=== PATIENT | male | born 1980 | race Two or more races ===

== ENCOUNTER 2025-06-15 22:46 | Emergency (ER) | payer SELFPAY ==
[2025-06-15 22:48] VITALS: BP 139/88; PULSE 102; RESP 18; TEMP 37.3; O2SAT 97
--- NOTE | 2025-06-15 23:07 | XR_ITS ---
Examination: CT brain head without contrast. 2-D sagittal coronal reconstructions Date and time of exam:June 15, 2025 1143 hrs. Indications: Headache dizziness today CTDI: vol (mGy):50.8 DLP: (mGycm):943 Technique: Multiple CT axial sections of the brain have been obtained, 5 mm slice thickness. Contrast has not been administered. 2-D sagittal, coronal reconstructions have been obtained Low dose protocols were performed. One or more of the following dose reduction techniques were used; automated exposure control, adjustment of the mA and/or KV according to patient size, use of iterative reconstruction technique. Findings: No significant ventricular enlargement. Intra-axial or extra-axial hemorrhage density is not seen. No mass effect or midline shift Basal cisterns are not remarkable. Fourth ventricle is midline. Cranial vault intact. Impression: Negative for acute hemorrhage, mass effect or midline shift Advise clinical correlation follow-up accordingly
[2025-06-15 23:48] LABS: Basophils # (Auto) 0.0 Thou/mm3 (0.0-0.2); Basophils % (Auto) 0 % (0-2.5); Eosinophils # (Auto) 0.0 Thou/mm3 (0.0-0.5); Eosinophils % (Auto) 0 % (0-10); Hematocrit 47.2 % (41.0-53.0); Hemoglobin 16.3 g/dL (13.5-16.0); Immature Granulocytes Auto 0.03 Thou/mm3 (0.00-0.00); Lymphocytes # (Auto) 1.3 Thou/mm3 (1.0-4.8); Lymphocytes % (Auto) 14 % (10-50); Mean Corpuscular HGB Conc 34.5 g/dl (31.0-37.0); Mean Corpuscular Hemoglobin 27.4 pg (25.0-35.0); Mean Corpuscular Volume 80 fL (80-100); Monocytes # (Auto) 0.5 Thou/mm3 (0.0-0.8); Monocytes % (Auto) 5 % (0-12); Neutrophils # (Auto) 7.4 Thou/mm3 (1.8-7.7); Neutrophils % (Auto) 80 % (37-80); Nucleated Red Blood Cell # 0.00 Thou/mm3 (0.00-0.00); Nucleated Red Blood Cell % 0 /100 WBC (0); Platelet Count 165 Thou/mm3 (140-440); RDW Standard Deviation 35.7 fL (35.1-43.9); Red Blood Count 5.94 Miln/mm3 (4.50-5.90); White Blood Count 9.3 Thou/mm3 (3.8-10.6)
[2025-06-16] LABS: Alanine Aminotransferase 46 U/L (10-49); Albumin, Serum 4.2 gm/dL (3.5-5.0); Albumin/Globulin Ratio 1.3 (1.2-2.2); Alkaline Phosphatase 111 U/L (46-116); Anion Gap 12 (7-16); Aspartate Amino Transferase 24 U/L (0-34); BUN/Creatinine Ratio 11 Ratio (12-20); Bilirubin,Total 1.6 mg/dL (0.3-1.2); Blood Urea Nitrogen 12 mg/dL (9-23); Calcium 9.8 mg/dL (8.3-10.6); Calcium (Corrected) 9.8 mg/dL (8.5-10.1); Carbon Dioxide 25.2 mMol/L (20.0-31.0); Chloride 100 mMol/L (98-107); Creatinine (Component) 1.1 mg/dL (0.6-1.3); Globulin 3.3 gm/dL (2.3-3.5); Glucose 332 mg/dL (74-106); Osmolality,Calculated 286 (275-295); Potassium 4.2 mMol/L (3.4-5.1); Sodium 137 mMol/L (136-145); Total Protein 7.5 gm/dL (5.7-8.2); eGFR > 60 See Note
[2025-06-16 00:58] LABS: Base Excess, Venous 2 (-3-3); O2 Saturation, Venous 33 % (96-97); PCO2, Venous 41 mmHg (36-56); PO2, Venous 19 mmHg (15-58); pH, Venous 7.42 (7.33-7.66)
[2025-06-16 03:11] VITALS: BP 118/81; PULSE 108; RESP 18; O2SAT 97
[2025-06-16] MEDS: SODIUM CHLORIDE 0.9% 1000 ML 1,000 ML 999 ML IV (03:31)
[2025-06-16] MEDS: INSULIN HUM REGULAR 1 UNIT/0.01 ML (PER UNIT) 5 UNIT IV (03:40)
[2025-06-16] MEDS: HYDROcodone/APAP 5/325 TABLET 1 TAB PO (03:47)
[2025-06-16] MEDS: ONDANSETRON INJ 2 MG/ML INJ 2 ML 4 MG IVP (03:47)
[2025-06-16] MEDS: KETOROLAC INJ 30 MG/ML VIAL IVP (03:47)
[2025-06-16 03:53] VITALS: BP 150/96; PULSE 111; RESP 21; TEMP 38.3
--- NOTE | 2025-06-16 04:49 | EDNOTE_ITS ---
ED Headache RME/HPI General Chief Complaint: Headache Stated Complaint: HEADACHE NV DIZZINESS Time Seen by Provider: 06/15/25 23:06 Arrival date/time: 06/15/25 22:46 This is a case of 45-year-old male with history of diabetes came in in the emergency room due to headache dizziness nausea vomiting today due to pe rsistence of the symptoms this patient decided to sought consult here in the emergency room denies blurring of vision denies any injury or trauma on the head denies any numbness weakness or tingling sensation Limitations: no limitations Related Data Previous Rx's ?Medication ?Instructions ?Recorded butalbital 50 mg-acetaminophen 325 1 tab PO Q6H PRN he adache #12 tabs 06/16/25 mg tablet ondansetron 4 mg disintegrating 4 mg PO Q8H PRN nausea and 06/16/25 tablet vomiting #14 tabs Allergies Allergy/AdvReac Type Severity Reaction Status Date / Time NKA* Allergy Uncoded 06/15/25 22:55 Review of Systems Review of Systems Systems Reviewed: All systems reviewed, normal except as documented Constitutional Constitutional: Reports system reviewed and no additional complaints, except as documented and Reports as per HPI Eyes Eyes: Reports system reviewed and no additional complaints, except as documented and Denies blurry vision Cardiovascular Cardiovascular: Reports system reviewed and no additional complaints, except as documented Respiratory Respiratory: Reports system reviewed and no additional complaints, except as documented and Reports as per HPI Gastrointestinal Gastrointestinal: Reports system reviewed and no additional complaints, except as documented and Reports as per HPI Genitourinary Genitourinary: Reports system reviewed and no additional complaints, except as documented and Reports as per HPI Neurologic Neurologic: Reports system reviewed and no additional complaints, except as documented and Reports as per HPI Past Medical History Past Medical History CARDIAC: Negative Congestive Heart Failure RESPIRATORY: Negative Chronic Obstructive Pulmonary Disease (COPD) GENITOURINARY: Negative Renal Disease ENDOCRINE: Negative Diabetes Mellitus Type 1 or Diabetes Mellitus Type 2 Social History SMOKING STATUS: Never smoker ED Exam General Limitations: Present no limitations General appearance: Present alert, in no apparent distress and other (Patient is awake alert oriented not in distress nontoxic looking well-hydrated well-nourished) Head Head exam: Present atraumatic, normocephalic and normal inspection Eye Eye exam: Present normal appearance, PERRL, EOMI and other (PERRL EOM intact normal conjunctiva no palpable edema no hyphema) ENT ENT exam: Present normal exam, normal oropharynx, mucous membranes moist and other (Normal HEENT exam) Neck Neck exam: Present normal inspection, full ROM, trachea midline and other (Negative for meningeal sign); Absent tenderness, meningismus, lymphadenopathy or thyromegaly Chest Chest inspection: Present normal inspection and symmetric chest wall rise; Absent tenderness, rash or abscess Respiratory Respiratory exam: Present normal lung sounds bilaterally; Absent respiratory distress, wheezes, stridor, accessory muscle use or prolonged expiratory phase Cardiovascular Cardiovascular exam: Present regular rate, normal rhythm and normal heart sounds; Absent bradycardia, tachycardia, irregular rhythm, systolic murmur or diastolic murmur Abdominal Exam Abdominal exam: Present soft and normal bowel sounds Extremities Exam Extremities exam: Present normal inspection and full ROM Back Exam Back exam: Present normal inspection and full ROM Neurological Exam Neurological exam: Present alert, oriented X3, CN II-XII intact, normal gait, reflexes normal and other (Awake alert oriented x 4 no focal deficit GCS 15/15 steady gait the gait no slurring of speech no facial droop CN II through XII is normal motor or sensory reflex were normal negative Babinski); Absent motor sensory deficit Psychiatric Psychiatric exam: Present normal affect and normal mood Skin Skin exam: Present warm, dry, intact, normal color and other (Excellent skin turgor) Course Quality Measures none Orders Category Date Time Status Insert IV NOW Care 06/16/25 03:[address] head/brain wo con Stat Exams 06/15/25 23:07 Completed CBC Stat Lab 06/15/25 23:20 Completed CMP [Comprehensive Metabolic Panel] Stat Lab 06/15/25 23:20 Completed Urinalysis Stat Lab 06/16/25 00:45 Ordered Venous Blood Gas Stat Lab 06/16/25 00:50 Completed HYDROcodone*/APAP 5/325 [[place] 5/325] Med 06/16/25 03:38 Discontinued 1 tab PO X1 ONE Ibuprofen Tab [Motrin Tab] Med 06/16/25 05:35 Once 800 mg PO X1 ONE Insulin Regular Med 06/16/25 00:44 Discontinued 5 unit IV X1 ONE Ketorolac Inj [Toradol Inj] Med 06/16/25 03:38 Discontinued 30 mg IVP X1 ONE Ondansetron Inj [Zofran Inj] Med 06/16/25 03:38 Discontinued 4 mg IVP X1 ONE Sodium Chloride 0.9% 1000 ml [Ns] 1,000 ml Med 06/16/25 00:44 Discontinued IV 999 mls/hr Vital Signs Vital signs: Vital Signs Temperature 99.2 F 06/15/25 22:48 Pulse Rate 102 H 06/15/25 22:48 Respiratory Rate 18 06/15/25 22:48 Blood Pressure 139/88 H 06/15/25 22:48 Pulse Oximetry (%) 97 06/15/25 22:48 Oxygen Delivery Method Room Air 06/15/25 22:48 Oxygen saturation is 97% in room air patient is afebrile not tachycardic not tachypneic BP stable Headache MDM Narrative MDM Narrative:: This is a case of 45-year-old male with history of diabetes came in in the emergency room due to headache dizziness nausea vomiting today due to persistence of the symptoms this patient decided to sought consult here in the emergency room denies blurring of vision denies any injury or trauma on the head denies any numbness weakness or tingling sensation physical examination patient is awake alert oriented not in distress nontoxic looking well-hydrated well- nourished excellent skin turgor no contusion no hematoma on the head PERRL EOM intact normal conjunctiva no palpable edema no hyphema HEENT exam is normal and unremarkable lungs sound is clear no crackles no rales no retraction no stridor heart normal rate regular rhythm no murmur neurological exam is normal awake alert oriented x 4 no focal deficit GCS 15/15 CN II through XII is normal memory intact no slurring of speech no facial droop motor or sensory reflex were normal in all extremities negative Babinski steady gait blood test showed no leukocytosis no anemia kidney and liver function is normal no electrolyte imbalance patient glucose noted to be 332 thus hypoglycemia protocol was followed patient was given a bolus of normal saline and was given 5 units of regular insulin patient and iron is -12 thus patient is not having DKA patient venous blood gas is also normal patient EKG is also normal sinus rhythm patient CT scan of the head is also normal and unremarkable after giving Toradol [place] and Zofran patient headache was resolved patient blood sugar was rechecked after a bolus of normal saline and regular insulin and was noted to be 283 at this point patient condition markedly improved and can be discharged home with stable condition I have a long discussion with this patient patient needs to continue and take the medication of diabetes daily he needs to see also washateria attendant to review the medication for diabetes and to monitor his blood sugar he also needs to see a neurologist for his headache he was also advised to return in the emergency room if symptoms become worse recur or persist patient has no signs and symptoms of sepsis dehydration nor meningitis negative for meningeal sign Patient was discharged with comfortable condition walking with stable gait. Shabbir goff verbalized no further complains explained diagnosis and answered patient question. Patient is comfortable with the proposed management plan including the need to follow up with his/her primary care physician and any specialist if applicable Discussed patient for any urgent condition or worsening sx, He/She needed to go to emergency room immediately or call 911. Patient acknowledge the responsibility to follow up as instructed and to monitor her/his symptoms. For any persistence of the symptoms for more than 3-5 days return precaution advised. Discussed the result of the test and was given printed discharge instruction Patient data External records reviewed:: [facility] previous records Clinical information provided by:: patient and spouse Social determinants that could affect healthcare access:: none Patient has the following chronic illnesses:: None How is presenting disease/condition affected by chronic disease/condition?: no chronic disease Evaluation data The following diagnostics were reviewed and interpreted by me:: lab results, radiology exam(s) and EKG tracing(s) Lab and/or radiology exams considered but not ordered:: Reviewed Interpretation Summary: Reviewed Medications / Prescriptions Medications or Prescriptions considered but not ordered:: Given Medication administrations:: Medication Administration History Discontinued Medications Hydrocodone Bitart/Acetaminophen (Hydrocodone/Apap 5/325 Tablet) 1 tab PO X1 ONE Stop: 06/16/25 03:39 Last Admin: 06/16/25 03:47 Dose: 1 tab Documented By: MARYJANE Sodium Chloride (Ns) 1,000 mls @ 999 mls/hr IV .Q1H1M ONE Stop: 06/16/25 01:44 Last Infusion: 06/16/25 04:35 Dose: Infused Documented By: Admin: 06/16/25 03:31 Dose: 999 mls/hr Documented By: MARYJANE Insulin Human Regular (Insulin Hum Regular 1 Unit/0.01 Ml (Per Unit)) 5 unit IV X1 ONE Stop: 06/16/25 00:45 Last Admin: 06/16/25 03:40 Dose: 5 unit Documented By: MARYJANE Co-signed By: Ketorolac Tromethamine (Ketorolac Inj 30 Mg/Ml Vial) 30 mg IVP X1 ONE Stop: 06/16/25 03:39 Last Admin: 06/16/25 03:47 Dose: 30 mg Documented By: MARYJANE Ondansetron HCl (Ondansetron Inj 2 Mg/Ml Inj 2 Ml) 4 mg IVP X1 ONE; Protocol Stop: 06/16/25 03:39 Last Admin: 06/16/25 03:47 Dose: 4 mg Documented By: MARYJANE Given Consultations Consultation(s) initiated? (list below): No Diagnosis Differential diagnosis headache: migraine, tension headache, headache and sinusitis Most likely diagnosis given after review of the tests above:: Headache Admission Indicated Admission indicated?: not indicated Explain why admission is indicated or not indicated:: Not indicated Admission Request Was there a request for admission?: No Disposition Plan Disposition Plan: Discharge Discharge Attestation Discharge Attestation: The patient and all family members were given an opportunity to ask questions and understood the discharge instructions. Discharge instructions specifically effects, indications for sooner follow up or return to the emergency department, and the expected course of current diagnosis. Patient condition: Stable Discharge Plan Plan Patient Disposition: HOME (Self Care) Patient condition on transfer: Stable Prescriptions/Referrals Prescriptions/Med Rec: New butalbital-acetaminophen 50-325 mg tablet 1 tab PO Q6H PRN (Reason: headache) Qty: 12 0RF ondansetron 4 mg tablet,disintegrating 4 mg PO Q8H PRN (Reason: nausea and vomiting) Qty: 14 0RF Referrals: No Primary/Family,Physician [Primary Care Provider] - In 1 week Problem List Clinical Impression: Headache, Hyperglycemia Patient/Caregiver Discharge Instructions Education Materials: Self-Care for Headaches, ED Diabetes with High Blood Sugar Additional Instructions: Follow-up with your primary care physician in 2 days for reevaluation and to be referred to neurologist for further evaluation and treatment of your headache it is also very important to be referred to washateria attendant for further evaluation and treatment of your hyperglycemia and uncontrolled diabetes continue to monitor your blood sugar every 12 hours and return to the emergency room if your blood sugar greater than 250 or less than 80 or become symptomatic it is very important to take your medication for your diabetes diabetic diet is also advised recurrence persistent worsening symptoms or any emergent concern call 911 or go to the nearest emergency room take your medication as directed Print Language: [place] Stand Alone Forms: Vicky Award Info., Patient Portal Info Letter PA/DISCOTHEQUE DANCER Supervising Physician PA/DISCOTHEQUE DANCER Supervising Physician: Dr. Desir
--- NOTE | 2025-06-16 05:27 | PC.NURSE ---
Notified Provider Browning of Discharge HR 111-states okay to discharge.
[2025-06-16 05:30] VITALS: PULSE 107; RESP 19; TEMP 38; O2SAT 98
== END 2025-06-16 05:30 | disposition home or self-care (01) ==
PROVIDERS: Nurse Practitioner Family; Emergency Provider Emergency Medicine
DX: R51.9 Headache, unspecified (principal); E11.65 Type 2 diabetes mellitus with hyperglycemia
CPT/HCPCS: 36415; 70450; 80053; 81001; 82803; 85025; 96361; 96374; 96375; 99283; J1815; J1885; J2405; J7030; A9270

== ENCOUNTER 2025-06-21 09:02 | Emergency (ER) | payer MEDICAID, SELFPAY ==
[2025-06-21 09:17] VITALS: BP 121/80; PULSE 100; RESP 18; TEMP 36.6; O2SAT 98; BMI 25.0
--- NOTE | 2025-06-21 09:20 | EKG_ITS ---
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
--- NOTE | 2025-06-21 09:22 | PD.EDRME ---
Rapid Medical Screening Exam RME Arrival date/time: 06/21/25 09:02 45-year-old male with no known medical history presents to the emergency room with a chief complaint of weakness, fatigue, nausea x 3 days I have greeted and performed a focused initial assessment of this patient. A comprehensive ED assessment and evaluation of the patient, analysis of all test results, and completion of the medical decision making process will be conducted by additional ED providers. Chief Complaint: Weakness Time Seen by Provider: 06/21/25 09:05 Vital signs: Vital Signs Temperature 98 F 06/21/25 09:17 Pulse Rate 100 06/21/25 09:17 Respiratory Rate 18 06/21/25 09:17 Blood Pressure 121/80 06/21/25 09:17 Pulse Oximetry (%) 98 06/21/25 09:17 Oxygen Delivery Method Room Air 06/21/25 09:17 Vital signs reviewed by provider: Yes
[2025-06-21 10:15] LABS: Collection Type, Urine Clean Catch; Squamous Epithelial Cell,Urine 0 /hpf (0-5)
[2025-06-21 10:33] LABS: Amphetamine/Methamp Scrn,U Negative (Negative); Barbiturate Screen,Urine Negative (Negative); Benzodiazepines Screen,Urine Negative (Negative); Benzoylecgonine Screen, Ur Negative (Negative); Fentanyl Screen,Urine Negative (Negative); Opiate Screen,Urine Negative (Negative); THC Screen,Urine Negative (Negative)
[2025-06-21 10:36] LABS: Bacteria,Urine Rare; Bilirubin,Urine Negative (Negative); Blood,Urine Negative (Negative); Clarity,Urine Clear (Clear/Hazy); Color,Urine Yellow (Lt Yel-Yel); Culture Indicated,Urine Not Indicated; Glucose, Urine 4+ (Negative); Ketones,Urine 4+ (Negative); Leukocyte Esterase,Urine Negative (Negative); Nitrite,Urine Negative (Negative); PH,Urine 6.0 (5.0-7.0); Protein,Urine Negative (Neg - Trace); RBC,Urine 6 /hpf (0-3); Specific Gravity,Urine 1.044 (1.001-1.035); Urobilinogen,Urine 2.0 mg/dL (0.0-1.0); WBC,Urine 2 /hpf (0-5)
[2025-06-21 10:38] LABS: Basophils # (Auto) 0.0 Thou/mm3 (0.0-0.2); Basophils % (Auto) 0 % (0-2.5); Eosinophils # (Auto) 0.0 Thou/mm3 (0.0-0.5); Eosinophils % (Auto) 0 % (0-10); Hematocrit 47.2 % (41.0-53.0); Hemoglobin 15.9 g/dL (13.5-16.0); Immature Granulocytes Auto 0.03 Thou/mm3 (0.00-0.00); Lymphocytes # (Auto) 1.8 Thou/mm3 (1.0-4.8); Lymphocytes % (Auto) 22 % (10-50); Mean Corpuscular HGB Conc 33.7 g/dl (31.0-37.0); Mean Corpuscular Hemoglobin 27.1 pg (25.0-35.0); Mean Corpuscular Volume 80 fL (80-100); Monocytes # (Auto) 0.5 Thou/mm3 (0.0-0.8); Monocytes % (Auto) 6 % (0-12); Neutrophils # (Auto) 5.9 Thou/mm3 (1.8-7.7); Neutrophils % (Auto) 72 % (37-80); Nucleated Red Blood Cell # 0.00 Thou/mm3 (0.00-0.00); Nucleated Red Blood Cell % 0 /100 WBC (0); Platelet Count 213 Thou/mm3 (140-440); RDW Standard Deviation 36.5 fL (35.1-43.9); Red Blood Count 5.87 Miln/mm3 (4.50-5.90); White Blood Count 8.2 Thou/mm3 (3.8-10.6)
[2025-06-21 10:59] LABS: Alanine Aminotransferase 63 U/L (10-49); Albumin, Serum 4.4 gm/dL (3.5-5.0); Albumin/Globulin Ratio 1.2 (1.2-2.2); Alcohol, Blood Medical < 3.0 mg/dL (0-10.0); Alkaline Phosphatase 98 U/L (46-116); Anion Gap 17 (7-16); Aspartate Amino Transferase 34 U/L (0-34); B-Type Natriuretic Peptide < 20 pg/mL (0-100); BUN/Creatinine Ratio 13 Ratio (12-20); Bilirubin,Total 1.6 mg/dL (0.3-1.2); Blood Urea Nitrogen 13 mg/dL (9-23); Calcium 9.7 mg/dL (8.3-10.6); Calcium (Corrected) 9.7 mg/dL (8.5-10.1); Carbon Dioxide 22.3 mMol/L (20.0-31.0); Chloride 100 mMol/L (98-107); Creatinine (Component) 1.0 mg/dL (0.6-1.3); Estimated Creatinine Clearance 87.2 mL/min (>60); Free T4 (Free Thyroxine) 1.53 ng/dL (0.89-1.76); Globulin 3.6 gm/dL (2.3-3.5); Glucose 127 mg/dL (74-106); Magnesium 2.1 mg/dL (1.6-2.6); Osmolality,Calculated 279 (275-295); Potassium 4.4 mMol/L (3.4-5.1); Sodium 139 mMol/L (136-145); Thyroid Stimulating Hormone 0.81 uIU/mL (0.55-4.78); Total Protein 8.0 gm/dL (5.7-8.2); Troponin I < 0.002 ng/mL (0.0-0.045); eGFR > 60 See Note
--- NOTE | 2025-06-21 12:26 | PD.EDWEAK ---
ED Weakness RME/HPI General Chief complaint: Weakness Stated complaint: NAUSEOUS AND LEGS HURTING, WAS HERE TUESDAY Time Seen by Provider: 06/21/25 09:05 Arrival date/time: 06/21/25 09:02 RME / HPI RME / HPI Narrative: 45-year-old male with no known medical history presents to the emergency room with a chief complaint of weakness, fatigue, nausea x 3 days. Patient also complained of dizziness. Patient was seen here few days ago for headache CT scan of the head came back unremarkable. Patient is ambulatory. Patient is diabetic and told me that last Tuesday his blood sugar was noted to be above 300. No vomiting no fever no other complaints noted patient is ambulatory. Denies any head trauma or fall. Related Data Previous Rx's ?Medication ?Instructions ?Recorded butalbital 50 mg-acetaminophen 325 1 tab PO Q6H PRN headache #12 tabs 06/16/25 mg tablet ondansetron 4 mg disintegrating 4 mg PO Q8H PRN nausea and 06/16/25 tablet vomiting #14 tabs meclizine 25 mg tablet 25 mg PO BID PRN dizziness #20 tabs 06/21/25 pantoprazole 40 mg tablet,delayed 40 mg PO QDAY #20 tabs 06/21/25 release (Protonix) Allergies Allergy/AdvReac Type Severity Reaction Status Date / Time NKA* Allergy Uncoded 06/15/25 22:55 Review of Systems Review of Systems Narrative Review of Systems: Review of system reviewed and within normal limits except mentioned in HPI ED Exam Narrative Physical exam: VITAL SIGNS: Reviewed. GENERAL APPEARANCE: Alert and interactive, follows commands, no acute distress, HEAD AND FACE: Non-traumatic. ENT: PERRL, pink conjunctivitis, eyelid no trauma, Mucous membrane moist. NECK: Supple, nontender, no nuchal rigidity. CHEST: No tenderness, no crepitus, no paradoxical movement, no retractions. LUNGS: Clear, well ventilated, symmetric, no rales, no wheezing, no ronchi, no stridor, good breath sounds bilaterally. HEART: Regular rate, regular rhythm, no murmur, no gallops. ABDOMEN: Soft, positive bowel sounds, nondistended, no guarding, nontender, no rebound, no masses, RECTAL: Deferred. GENITAL: Deferred. NEUROLOGICAL: Gross motor function intact sensory function intact, Appropriate for age. MUSCULOSKELETAL: low back nontender, full range of motion. EXTREMITIES: Nontender, full range of motion. SKIN: Color pink, dry, no rash, no lacerations, no abrasions, no contusions. LYMPHATICS: Deferred. Course Quality Measures none Orders Category Date Time Status EKG (ED ONLY) *Do not use* NOW Care 06/21/25 09:20 Completed EKG (ED Only) Stat Exams 06/21/25 09:20 Draft Alcohol, Blood Medical Stat Lab 06/21/25 10:22 Completed B-Type Natriuretic Peptide Stat Lab 06/21/25 10:22 Completed CBC Stat Lab 06/21/25 10:22 Completed Comprehensive Metabolic Panel Stat Lab 06/21/25 10:22 Completed Drug Screen,Urine Stat Lab 06/21/25 10:02 Completed Free T4 (Free Thyroxine) Stat Lab 06/21/25 10:22 Completed Magnesium Stat Lab 06/21/25 10:22 Completed TSH [Thyroid Stimulating Hormone] Stat Lab 06/21/25 10:22 Completed Troponin I Stat Lab 06/21/25 10:22 Completed Urinalysis, C/S if Indicated Stat Lab 06/21/25 10:02 Completed Vital Signs Vital signs: Vital Signs Temperature 98 F 06/21/25 09:17 Pulse Rate 100 06/21/25 09:17 Respiratory Rate 18 06/21/25 09:17 Blood Pressure 121/80 06/21/25 09:17 Pulse Oximetry (%) 98 06/21/25 09:17 Oxygen Delivery Method Room Air 06/21/25 09:17 Weakness MDM Narrative MDM Narrative:: 45-year-old male with no known medical history presents to the emergency room with a chief complaint of weakness, fatigue, nausea x 3 days. Patient also complained of dizziness. Patient was seen here few days ago for headache CT scan of the head came back unremarkable. Patient is ambulatory. Patient is diabetic and told me that last Tuesday his blood sugar was noted to be above 300. No vomiting no fever no other complaints noted patient is ambulatory. Denies any head trauma or fall. Patient's workup today all came back unremarkable including glucose of 127. CMP showed total bili of 1.6 few days ago it was also 1.6 patient denies any abdominal pain. Urinalysis no UTI. EKG showed normal sinus rhythm, ventricular rate of 100 bpm, no ST segment elevation or depression. Patient stable for discharge home patient is ambulatory. Advised the patient to follow-up closely with PCP. Patient agrees with the plan Patient data External records reviewed:: None Clinical information provided by:: none Social determinants that could affect healthcare access:: none Patient has the following chronic illnesses:: Diabetes mellitus How is presenting disease/condition affected by chronic disease/condition?: exacerbated by Evaluation data The following diagnostics were reviewed and interpreted by me:: lab results and EKG tracing(s) Lab and/or radiology exams considered but not ordered:: None Interpretation Summary: See results MDM Medications / Prescriptions Medications or Prescriptions considered but not ordered:: None Medication administrations:: None Consultations Consultation(s) initiated? (list below): No Diagnosis Weakness Differential Diagnosis: dehydration and other (Dizziness, weakness) Most likely diagnosis given after review of the tests above:: Generalized weakness Admission Indicated Admission indicated?: not indicated Admission Request Was there a request for admission?: No Disposition Plan Disposition Plan: Discharge Discharge Attestation Discharge Attestation: The patient and all family members were given an opportunity to ask questions and understood the discharge instructions. Discharge instructions specifically effects, indications for sooner follow up or return to the emergency department, and the expected course of current diagnosis. Patient condition: Stable Discharge Plan Plan Patient Disposition: HOME (Self Care) Discharge Disposition comment: Stable Prescriptions/Referrals Prescriptions/Med Rec: New meclizine 25 mg tablet 25 mg PO BID PRN (Reason: dizziness) Qty: 20 0RF pantoprazole [Protonix] 40 mg tablet,delayed release (DR/EC) 40 mg PO QDAY Qty: 20 0RF No Action butalbital-acetaminophen 50-325 mg tablet 1 tab PO Q6H PRN (Reason: headache) Qty: 12 0RF ondansetron 4 mg tablet,disintegrating 4 mg PO Q8H PRN (Reason: nausea and vomiting) Qty: 14 0RF Referrals: Andi Magdaleno MD [Primary Care Provider, Family Practice] - In 1 week Problem List Clinical Impression: Weakness generalized Patient/Caregiver Discharge Instructions Discharge Activity: activity as tolerated Education Materials: ED Weakness (Uncertain Cause) Additional Instructions: Thank you for the opportunity for serving you today. You are stable for discharged . You are advised to: Follow-up with your PCP in 1 to 2 days Return to ED for worsening of symptoms Increase oral fluids Continue taking your diabetic medication. Print Language: Bulgarian Stand Alone Forms: Vicky Award Info., Patient Portal Info Letter PA/INTERIOR WALL ASSEMBLER Supervising Physician PA/INTERIOR WALL ASSEMBLER Supervising Physician: MD Denice
[2025-06-21 12:59] VITALS: BP 138/78; PULSE 98; RESP 19; TEMP 37.1; O2SAT 97
== END 2025-06-21 12:59 | disposition home or self-care (01) ==
PROVIDERS: Nurse Practitioner Family; Emergency Provider Family Medicine; PCP Family Medicine
DX: R53.1 Weakness (principal); E11.9 Type 2 diabetes mellitus without complications
CPT/HCPCS: 36415; 80053; 80307; 80320; 81001; 83735; 83880; 84439; 84443; 84484; 85025; 93005; 99284; G0480